=== PATIENT | female | born 1970 | race Caucasian/White ===

== ENCOUNTER → 2017-03-30 | Outpatient (CLI) | payer MEDICAID ==
[~2017-03-30] MED LIST: ACETAMINOPHEN-H1 TA2 PO; AMOXICILLIN 50500 MG PO; BACTRIM DS 8001 TA1 PO; BIAXIN FILMTAB500 MG PO; CLONAZEPAM0.5 M1 PO; DIFLUCAN 100MG100 MG PO; DIFLUCAN100 M1 PO; KEFLEX 500MG.500 MG PO; KEFLEX500 M1 PO; KLONOPIN 0.5MG0.5 MG PO; LANSOPRAZOLE30 MG PO; LISINOPRIL10 MG PO; LORTAB 500 MG-71 TAB PO; MELOXICAM15 MG PO; METFORMIN 500M500 M1 PO; MINOCYCLINE 10100 MG PO; NAPROXEN SODIU500 MG PO; NEURONTIN800 MG PO; NORCO 325 MG-101 TAB PO; NORCO 325 MG-51 TAB PO; ONDANSETRON 4MG4 M1 PO; OXAZEPAM 10MG C10 M1 PO; PHENERGAN 25MG.25 M1 PO; PHENERGAN 25MG.25 MG PR; PHENERGAN25 M3 PO; PRILOSEC OTC20 MG PO; SERTRALINE 50MG50 MG PO; TESSALON PERLE100 MG PO; TIZANIDINE HCL 44 MG NG; TRAMADOL 50MG T1 PAK PO; TRAMADOL 50MG T50 M1 PO; XANAX 1MG TABLET1 MG PO; ZANAFLEX4 MG PO; ZITHROMAX Z PA250 MG PO
--- NOTE | 2017-04-06 07:57 | RADIOLOGY REPORT PS360 ---
DIG MAMM-SCREEN DONNY W/CAD CAD Screening COMPARISON: Digital mammograms 12/27/2015 and 6 month follow-up right mammogram 07/14/2016 INDICATION: Is a history of breast cancer in patient's sister diagnosed at age 35 and maternal cousin diagnosed before menopause TECHNIQUE: Standard CC and MLO images were obtained. R2 CAD reviewed. FINDINGS: Diffuse fibro there is a stable asymmetric density inner quadrant right breast best seen on the CC projection. Previous ultrasound examination suggested this is due to small intramammary node. There is no new or suspicious lesion in either breast and there are no suspicious microcalcifications. Glandular densities are seen throughout both breasts. IMPRESSION: Fibrofatty parenchyma with stable benign-appearing asymmetric density right breast, recommend yearly follow-up BI-RADS CATEGORY: 2_Benign RECOMMENDED FOLLOWUP: 12M 12 MONTH FOLLOW-UP (A letter has been sent to the patient regarding results of the study.)
== END ==
LOC: RAD 03-27 17:00
DX: R92.8 Other abnormal and inconclusive findings on diagnostic imaging of breast (principal); Z87.11 Personal history of peptic ulcer disease
CPT/HCPCS: G0202

== ENCOUNTER 2017-04-05 14:04 | Day surgery (SDC) | payer MEDICAID ==
[~2017-04-05] VITALS: Ht 165.1 cm; Wt 97.5 kg
--- NOTE | 2017-04-05 15:15 | Operative Note ---
Surgeon/Diagnoses Surgeon/Media Production Support Manager(s) Date of procedure: 04/05/17 Surgeon: MD Milton Tilley Diagnoses Pre-op diagnosis: Bright red blood per rectum History of colon polyps Gastritis Sliding hiatal hernia History of Helicobacter pylori infection Post-op diagnosis Same as preoperative diagnoses, with the addition of the following: Moderate hemorrhoid cushions with no active bleeding or thrombosis Procedure Procedure Procedure: Esophagogastroduodenoscopy with biopsy Colonoscopy (aborted secondary to exceedingly poor bowel preparation) Indications: MILADY LOZANO is a 47 year-old Female with a history of bright red blood per rectum and a history of colon polyps. She also has a history of Helicobacter pylori infection and moderate gastritis. Findings: Gastroesophageal junction at 39 cm Sliding hiatal hernia Moderate gastritis Bowel preparation poor Colonoscopy aborted Moderate hemorrhoidal cushions (mostly external) with no thrombosis or active bleeding Procedure Description: After informed consent was obtained, the patient was taken to the endoscopy suite. Monitored anesthesia care ensued after she was transferred to the LEFT lateral decubitus position. The gastroscope was advanced. The gastroesophageal junction was at 39 cm. The stomach was entered. Retroflexion confirmed and unchanged sliding hiatal hernia. Moderate gastritis was encountered and biopsies of the antrum were obtained. The pylorus was intubated. The duodenal mucosa appeared relatively normal. The gastroscope was carefully removed. Digital rectal exam revealed moderate hemorrhoidal cushions with no active bleeding or thrombosis. Close reevaluation and inspection revealed these to mostly be external cushions with a small internal component. The colonoscope was placed in position. Bowel preparation was poor as the rectosigmoid was essentially filled with feculent material. Further advancement of the colonoscope was deemed unwarranted and unsafe and it was carefully removed. The patient was transferred to recovery in stable condition. EBL (ml): 1 Anesthesia: Monitored anesthesia care Complications: Aborted colonoscopy secondary to poor bowel preparation Specimens: Antral biopsy Disposition Disposition: Stable to recovery from where she will be discharged home. She will follow-up in one week. She still requires short-term repeat colonoscopy with extended bowel preparation. Discussion regarding possible intervention for her hemorrhoid disease will be ongoing. at [phone]
[2017-04-05 15:45] VITALS: BP 112/69
== END 2017-04-05 15:35 | disposition home or self-care (01) ==
LOC: SDC 14:04
PROVIDERS: Surgery
PROC: 0DB78ZX Excision of Stomach, Pylorus, Via Natural or Artificial Opening Endoscopic, Diagnostic (ICD-10-PCS; 2017-04-05)
PROC: 0DJD8ZZ Inspection of Lower Intestinal Tract, Via Natural or Artificial Opening Endoscopic (ICD-10-PCS; principal; 2017-04-05 11:30)
DX: Z86.010 Personal history of colon polyps (principal); K62.5 Hemorrhage of anus and rectum; K29.70 Gastritis, unspecified, without bleeding; K44.9 Diaphragmatic hernia without obstruction or gangrene

== ENCOUNTER 2017-08-09 18:53 | Emergency (ER) | payer MEDICAID ==
[~2017-08-09] VITALS: Ht 165.1 cm; Wt 90.7 kg
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
[2017-08-09 20:37] LABS: AMPHETAMINES/METAMPHETAMINES POSITIVE ng/mL (<1000)
[2017-08-09 20:44] VITALS: BP 160/100
== END 2017-08-09 20:44 | disposition home or self-care (01) ==
LOC: ER 18:53 → UTC 18:53
PROVIDERS: Nurse Practitioner
DX: Z13.89 Encounter for screening for other disorder (principal); I10 Essential (primary) hypertension; Z79.899 Other long term (current) drug therapy; F17.210 Nicotine dependence, cigarettes, uncomplicated